=== PATIENT | male | born 1975 | race Caucasian/White ===

== ENCOUNTER 2016-07-29 02:01 | Observation (INO) | payer SELFPAY ==
[2016-07-29] MEDS ORDERED: IBUPROFEN400 MG PO (16:23)
[2016-07-29] MEDS ORDERED: PERCOCET 10-321 EACH PO (16:24)
[2016-07-29] MEDS ORDERED: CIPRO500 MG PO (16:26)
== END 2016-07-29 14:44 | disposition home or self-care (01) ==
LOC: MED 02:01
PROVIDERS: ADMIT Urology
DX: N45.3 Epididymo-orchitis (principal); N50.89 Other specified disorders of the male genital organs
CPT/HCPCS: 96365; 96366; 96367; 96375; G0378